=== PATIENT | female | born 1960 | race Caucasian/White ===

== ENCOUNTER 2016-10-23 22:24 | Inpatient (IN) | payer BC ==
[~2016-10-23 22:24] MED LIST: ABACAVIR300 M1; ACETAMINOPHEN325 M2 GT; ACETAMINOPHEN650 MG PR; ADRENALIN1 MG/1 M3 SC; ADULT TUSS100 MG/51 GT; ALDACTONE25 M1 GT; AMIODARONE HCL100 M1 PO; AMIODARONE HCL200 M1 PO; ANTIBACTERIAL TP; ATIVAN0.5 M1 GT; ATIVAN0.5 M1 PO; BELLADONNA PR; BENADRYL ALLERG25 M1 GT; BIOFREEZE118 M1 TP; BROVANA15 MCG/22 INH; BYSTOLIC5 M1 GT; BYSTOLIC5 M1 PO; CETAPHIL TP; CITRATE OF MAG300 M1 GT; CITRATE OF MAG300 M1 PO; CREON DR 12,001 EAC1 GT; CYMBALTA60 M1 GT; DEMADEX20 M1 GT; DEXTROSE 525 GM/501 IV; DILAUDID2 M1 GT; DULCOLAX10 MG PR; DURAGESIC1 EAC2 TOP; FLEET ENEMA133 ML PR; FUROSEMIDE80 M2 IV; GLUCAGEN1 MG/1 ML IM; GUAIFENESIN ER600 MG PO; IPRAT-ALBUT 0.5-3 ML INH; KEFLEX500 M4 PO; KLOR-CON20 MEQ PO; LIDOCAINE20 MG/1 M3 INH; LOPRESSOR100 M1 PO; LOPRESSOR50 M1 PO; LORAZEPAM0.5 M1 GT; LOVENOX40 MG/0.1 SC; MAGNESIUM OXID400 M1 GT; METOPROLOL TART25 M1 PO; MILK OF MAGNESIA GT; MIRALAX17 G2 GT; MIRALAX17 G2 PO; MORPHINE SU2 MG/1 M1 IV; MULTI VITAMIN1 EAC2 PO; NYSTATIN15 G1 TOP; NYSTOP60 GM TP; OXYCODONE HCL10 M2 PO; OXYCODONE10 MG/0.5 GT; PEPCID20 M1 GT; POLYETHYLENE GL17 G1 GT; POTASSIUM20 MEQ/13 GT; PRENATAL CAPLE1 EACH PO; PRILOSEC OTC20 M1 PO; PULMICORT0.5 MG/22 INH; SENOKOT-S TABL1 EACH PO; SEROQUEL50 M1 GT; SODIUM BICARBO650 M1; SYNTHROID50 MC1 GT; TRAZODONE HCL50 M1 PO; TYLENOL325 M2 GT; TYLENOL325 M2 NG; TYLENOL325 M2 PO; XANAX0.25 M1 PO; ZOFRAN4 M2 SL; ZOVIRAX200 M1 PO
[2016-10-23 22:59] LABS: ABG CO2 ARTERIAL 35 mmol/L (21-27); ARTERIAL BLD GAS O2 SATURATION 97 % (95-98); ARTERIAL PO2 106 mmHg (70-100); BICARBONATE 32 mmol/L (21-28); BLOOD GAS BASE EXCESS 2 mM/L (-/+3)
[2016-10-23 23:02] LABS: ARTERIAL BLOOD GAS PCO2 93 mmHg (32-45); PH 7.16 Units (7.35-7.45)
[2016-10-24 00:30] LABS: BASO % 0.1 % (0-2); EOS % 0.1 % (0-7); HCT-HEMATOCRIT 27.4 % (34.0-49.0); HGB-HEMOGLOBIN 8.6 gm/dl (12.0-15.5); IMMATURE GRANULOCYTES ABSOLUTE 0.18 tho/cmm (0-0.03); IMMATURE GRANULOCYTES PERCENT 1.1 % (0-0.3); LYMPH % 3.7 % (20-45); LYMPH ABSOLUTE COUNT 0.6 tho/cmm (0.8-4.5); MCH (MEAN CORPUSCULAR HGB) 30.8 pg (28.0-32.0); MCHC MEAN CORPUSCULAR HGB CONC 31.4 % (32.0-36.0); MCV (MEAN CELL VOLUME) 98.2 fl (82.0-96.0); MEAN PLATELET VOLUME 8.2 cmc (9.4-12.4); MONO % 3.4 % (0-12); MONOCYTE ABSOLUTE COUNT 0.5 tho/cmm (0.0-1.2); NEUTROPHIL ABSOLUTE COUNT 14.4 tho/cmm (1.6-8.0); NEUTROPHIL-AUTOMATED 14.4 tho/cmm (1.6-8.0); NEUTROPHILS % 91.6 % (40-80); PLATELET COUNT 292 tho/cmm (150-450); RED BLOOD COUNT 2.79 mil/cmm (4.00-5.20); RED CELL DISTRIBUTION WIDTH 16.3 % (12.4-16.4); WHITE BLOOD COUNT 15.8 tho/cmm (4.0-10.0)
[2016-10-24 00:38] LABS: INR 1.1 INR (0.9-1.1); PROTHROMBIN TIME 12.8 SECONDS (9.0-13.6)
[2016-10-24 00:49] LABS: ALB/GLOB RATIO 0.6 (0.8-2.0); ALKALINE PHOSPHATASE 135 U/L (33-138); ALT/SGPT 17 U/L (12-78); ANION GAP 13 mmol/L (0-20); AST/SGOT 29 U/L (10-40); BILIRUBIN,TOTAL 0.1 mg/dl (0-1.5); BLOOD UREA NITROGEN 58 mg/dl (6-24); CALCIUM 8.5 mg/dl (8.5-10.5); CARBON DIOXIDE-VENOUS 32 mmol/L (22-32); CHLORIDE 98 mmol/l (96-110); CREATININE 0.96 mg/dl (0.50-1.10); GLUCOSE 131 mg/dL (70-110); MAGNESIUM 2.5 mg/dl (1.3-2.6); SODIUM 138 mmol/L (135-145); eGFR VALUE FOR BLACK >60 mL/Min
[2016-10-24 01:01] LABS: PROCALCITONIN 0.12 ng/ml (0.05-0.09)
[2016-10-24 02:47] LABS: ABG CO2 ARTERIAL 33 mmol/L (21-27); ARTERIAL BLD GAS O2 SATURATION 97 % (95-98); ARTERIAL PO2 104 mmHg (70-100); BICARBONATE 30 mmol/L (21-28); BLOOD GAS BASE EXCESS 2 mM/L (-/+3); PH 7.21 Units (7.35-7.45)
[2016-10-24 02:50] LABS: ARTERIAL BLOOD GAS PCO2 79 mmHg (32-45)
[2016-10-24 05:28] LABS: ABG CO2 ARTERIAL 31 mmol/L (21-27); ARTERIAL BLD GAS O2 SATURATION 92 % (95-98); BICARBONATE 30 mmol/L (21-28); BLOOD GAS BASE EXCESS 4 mM/L (-/+3)
[2016-10-24 05:29] LABS: ARTERIAL BLOOD GAS PCO2 51 mmHg (32-45); ARTERIAL PO2 63 mmHg (70-100); PH 7.38 Units (7.35-7.45)
[2016-10-24 05:51] LABS: BASO % 0.1 % (0-2); HCT-HEMATOCRIT 26.3 % (34.0-49.0); HGB-HEMOGLOBIN 8.2 gm/dl (12.0-15.5); IMMATURE GRANULOCYTES ABSOLUTE 0.16 tho/cmm (0-0.03); IMMATURE GRANULOCYTES PERCENT 1.1 % (0-0.3); LYMPH % 3.9 % (20-45); LYMPH ABSOLUTE COUNT 0.6 tho/cmm (0.8-4.5); MCH (MEAN CORPUSCULAR HGB) 30.7 pg (28.0-32.0); MCHC MEAN CORPUSCULAR HGB CONC 31.2 % (32.0-36.0); MCV (MEAN CELL VOLUME) 98.5 fl (82.0-96.0); MEAN PLATELET VOLUME 8.3 cmc (9.4-12.4); MONO % 4.9 % (0-12); MONOCYTE ABSOLUTE COUNT 0.7 tho/cmm (0.0-1.2); NEUTROPHIL ABSOLUTE COUNT 13.2 tho/cmm (1.6-8.0); NEUTROPHIL-AUTOMATED 13.2 tho/cmm (1.6-8.0); PLATELET COUNT 238 tho/cmm (150-450); RED BLOOD COUNT 2.67 mil/cmm (4.00-5.20); RED CELL DISTRIBUTION WIDTH 16.3 % (12.4-16.4); WHITE BLOOD COUNT 14.6 tho/cmm (4.0-10.0)
[2016-10-24 06:03] LABS: ALB/GLOB RATIO 0.6 (0.8-2.0); ALBUMIN 2.8 g/dl (3.5-5.0); ALKALINE PHOSPHATASE 150 U/L (33-138); ALT/SGPT 27 U/L (12-78); ANION GAP 14 mmol/L (0-20); AST/SGOT 37 U/L (10-40); BLOOD UREA NITROGEN 53 mg/dl (6-24); CALCIUM 8.5 mg/dl (8.5-10.5); CARBON DIOXIDE-VENOUS 30 mmol/L (22-32); CHLORIDE 100 mmol/l (96-110); CREATININE 0.86 mg/dl (0.50-1.10); GLUCOSE 106 mg/dL (70-110); MAGNESIUM 2.4 mg/dl (1.3-2.6); POTASSIUM 4.6 mmol/L (3.7-5.1); SODIUM 139 mmol/L (135-145); eGFR VALUE FOR BLACK >60 mL/Min
[2016-10-24 06:06] LABS: BILIRUBIN,TOTAL 0.2 mg/dl (0-1.5)
[2016-10-24 07:12] LABS: PROCALCITONIN 0.13 ng/ml (0.05-0.09)
[2016-10-24 12:35] LABS: BAL APPEARANCE HAZY (CLEAR); BAL COLOR PINK (COLORLESS)
[2016-10-24 14:44] LABS: BAL LYMPHOCYTES 0 %; BAL NEUTROPHILS 98 %
== END 2016-10-24 16:27 | disposition expired | DRG 871 ==
LOC: EDMED 22:24 → EMR2 10-24 01:48 → CCU 10-24 02:00
PROVIDERS: Emergency Medicine; Internal Medicine; Internal Medicine Critical Care Medicine; ADMIT Hospitalist
PROC: 5A1935Z Respiratory Ventilation, Less than 24 Consecutive Hours (ICD-10-PCS; principal; 2016-10-24)
PROC: 0B938ZX Drainage of Right Main Bronchus, Via Natural or Artificial Opening Endoscopic, Diagnostic (ICD-10-PCS; 2016-10-24)
PROC: 02HV33Z Insertion of Infusion Device into Superior Vena Cava, Percutaneous Approach (ICD-10-PCS; 2016-10-24)
DX: A41.9 Sepsis, unspecified organism (principal); J96.21 Acute and chronic respiratory failure with hypoxia; Z99.11 Dependence on respirator [ventilator] status; J18.9 Pneumonia, unspecified organism; J90 Pleural effusion, not elsewhere classified; Z93.0 Tracheostomy status; C78.7 Secondary malignant neoplasm of liver and intrahepatic bile duct; J96.22 Acute and chronic respiratory failure with hypercapnia; C34.2 Malignant neoplasm of middle lobe, bronchus or lung; C34.31 Malignant neoplasm of lower lobe, right bronchus or lung; N39.0 Urinary tract infection, site not specified; R65.20 Severe sepsis without septic shock; Z51.5 Encounter for palliative care; T30.0 Burn of unspecified body region, unspecified degree; I48.0 Paroxysmal atrial fibrillation; I10 Essential (primary) hypertension; E03.9 Hypothyroidism, unspecified; G89.4 Chronic pain syndrome; D64.9 Anemia, unspecified; I27.2 Other secondary pulmonary hypertension; R13.10 Dysphagia, unspecified; B96.4 Proteus (mirabilis) (morganii) as the cause of diseases classified elsewhere; F41.9 Anxiety disorder, unspecified; Z66 Do not resuscitate; Z74.01 Bed confinement status; W40 Explosion of other materials; T79.8XXS Other early complications of trauma, sequela; Z87.891 Personal history of nicotine dependence; Z93.1 Gastrostomy status
CPT/HCPCS: C1751; C1758; J0692; J1650; J1956; J2060; J2185; J2250; J2270; J3010; J3370; J7030; Q9967